=== PATIENT | male | born 1990 | race Caucasian/White ===

== ENCOUNTER 2018-08-18 14:32 | Emergency (ER) | payer BC, MEDICARE, SELFPAY ==
--- NOTE | 2018-08-18 14:35 | PC.NURSE ---
PT PLACED ON SUICIDE PRECAUTIONS AT THIS TIME.
[2018-08-18 14:41] VITALS: BP 168/112; PULSE 96; RESP 18; TEMP 36.5; O2SAT 96; BMI 34.0
--- NOTE | 2018-08-18 14:45 | PC.NURSE ---
RN ENTERED PATIENT'S ROOM, PATIENT ALERT AND ORIENTED TO SITUATION. INFORMED THIS RN THAT HE HAS THOUGHTS OF HARMING HIMSELF. RN PROVIDED ENCOURAGEMENT THAT HE HAD DONE THE RIGHT THING TELLING SOMEONE. PATIENT UP TO BATHROOM, GAIT STEADY. NO NEW NEEDS OR CONCERNS AT THIS TIME.
--- NOTE | 2018-08-18 14:49 | XR_ITS ---
XR chest 2V HISTORY: Chest pain, smoker ITS.REASON: SI ORDERING PHYSICIAN: Dusitn Bonner MD PATIENT AGE: 28 years COMPARISON: None FINDINGS: The cardiomediastinal silhouette and pulmonary vascularity are within normal limits. The lungs are clear without infiltrates, suspicious nodules, or pleural effusions. No acute bony abnormalities. IMPRESSION: Negative chest, no acute finding
--- NOTE | 2018-08-18 15:04 | PC.NURSE ---
Pt transported to [facility].
--- NOTE | 2018-08-18 15:14 | HMH.EDGENADL ---
ED Disposition Clinical Impression: Suicidal thoughts, Schizoaffective disorder, Auditory hallucination, Hypothyroidism Disposition: Xfer Short-Term Hosp Condition on Discharge: Fair Referrals: Silverio Irby MD [Primary Care Provider] - - Critical Care Critical Care Time: No Attestation: On 08/18/18, the high probability of a clinically significant, sudden or life threatening deterioration of the following system(s) required my full and direct attention, intervention and personal management. The time I documented below is in addition to time spent performing reported procedures but includes the following listed in this critical care notation. Medical Decision Making - Medical Records Medical records reviewed: Yes: I reviewed the patient's medical records. - Vijay Inquiry Pt receiving controlled substance: No Vijay was queried for this patient: No Vital Signs: 08/18/18 14:41 08/18/18 16:03 08/18/18 16:30 Temperature 97.7 F Temperature Source Oral Pulse Rate [Right Brachial] 96 H 83 86 Respiratory Rate 18 18 16 Blood Pressure [Right Arm] 168/112 H 145/84 H 156/84 H Blood Pressure Mean [Right Arm] 130 104 108 Blood Pressure Source [Right Arm] Automatic Cuff Automatic Cuff Automatic Cuff Blood Pressure Position [Right Arm] Sitting Sitting Supine 02 Sat by Pulse Oximetry 96 92 L 100 Oxygen Delivery Method Room Air Room Air Room Air 08/18/18 16:54 08/18/18 17:30 Temperature 98.2 F Temperature Source Oral Pulse Rate [Right Brachial] 82 100 H Respiratory Rate 20 16 Blood Pressure [Right Arm] 155/89 H 151/99 H Blood Pressure Mean [Right Arm] 111 116 Blood Pressure Source [Right Arm] Automatic Cuff Automatic Cuff Blood Pressure Position [Right Arm] Supine Supine 02 Sat by Pulse Oximetry 97 100 Oxygen Delivery Method Room Air Room Air - Lab Data Lab Results 08/18/18 15:00: WBC 8.0, RBC 5.10, Hgb 15.9, Hct 46.4, MCV 91.0, MCH 31.2, MCHC 34.3, RDW 13.2, Plt Count 257, MPV 7.6, Neut % (Auto) 66.0, Lymph % (Auto) 26.0, Hamilton % (Auto) 4.5, Eos % (Auto) 3.1, Baso % (Auto) 0.4, Neut # (Auto) 5.3, Lymph # (Auto) 2.1, Hamilton # (Auto) 0.4, Eos # (Auto) 0.3, Baso # (Auto) 0.0 08/18/18 15:00: Sodium 138, Potassium 3.7, Chloride 103, Carbon Dioxide 25, Anion Gap 13.7, BUN 8, Creatinine 1.01, Estimated Creat Clear 162, Estimated GFR 89, Est GFR ( Amer) 107, Glucose 115 H, Calcium 9.3, Total Bilirubin 0.5, AST 32, ALT 83 H, Alkaline Phosphatase 39 L, Total Protein 8.2, Albumin 4.3, Globulin 3.9 H, Albumin/Globulin Ratio 1.1, TSH 5.61 H, Free T4 0.86, Salicylates 0.9 L, Acetaminophen 0 L, Plasma/Serum Alcohol 0 08/18/18 15:03: Urine Color Yellow, Urine Appearance Clear, Urine pH 7.0, Ur Specific Girard 1.010, Urine Protein Trace, Urine Glucose (UA) Negative, Urine Ketones Negative, Urine Blood Negative, Urine Nitrate Negative, Urine Bilirubin Negative, Urine Urobilinogen 0.2, Ur Leukocyte Esterase Negative, Urine WBC Occasional, Ur Squamous Epith Cells Occasional, Urine Bacteria Trace 08/18/18 15:03: Urine Opiates Screen Negative, Urine Methadone Screen Negative, Ur Barbituates Screen Negative, Ur Phencyclidine Scrn Negative, Ur Amphetamines Screen Negative, U Benzodiazepines Scrn Negative, Urine Cocaine Screen Negative, U Marijuana (THC) Screen Negative Result diagrams: 08/18/18 15:00 08/18/18 15:00 Medical Decision Narrative: The patient remained hemodynamically neurologically stable. He underwent unremarkable labs. He will be taken by [facility] to [facility] for intake. General Adult HPI - General Chief complaint: Psychiatric Symptoms Stated complaint: Suicidal Thoughts Time Seen by Provider: 08/18/18 15:00 Mode of Arrival: Ambulatory Source of Information: Patient Limitations: No Limitations Description of Symptoms (Recalled from ER Triage Doc. by RN): was watching tv when the depression hit him . - History of Present Illness HPI narrative: 28 years old white male resident [facility]
[2018-08-18 15:25] LABS: Basophils % 0.4 % (0.1-2.0); Eosinophils # 0.3 K/mm3 (0.0-0.4); Eosinophils % 3.1 % (0.1-12.0); Hematocrit 46.4 % (42.0-52.0); Hemoglobin 15.9 g/dL (14.1-18.0); Lymphocytes # 2.1 K/mm3 (0.7-4.5); Mean Corpuscular HGB Conc 34.3 g/dL (31.8-35.4); Mean Corpuscular Hemoglobin 31.2 pg (27.0-31.2); Mean Platelet Volume 7.6 fl (7.4-10.4); Monocytes # 0.4 K/mm3 (0.1-1.0); Monocytes % 4.5 % (1.7-9.3); Neutrophils # 5.3 K/mm3 (1.8-7.8); Platelet Count 257 K/mm3 (142-424); Red Cell Distribution Width 13.2 % (11.5-17.5)
[2018-08-18 15:44] LABS: Appearance,Urine CLEAR (Clear); Bilirubin,Urine Negative (Negative); Blood, Urine Negative (Negative); Color,Urine YELLOW (Yellow); Glucose,Urine (UA) Negative (Negative); Ketones,Urine Negative (Negative); Leukocyte Esterase,Urine Negative (Negative); Nitrate,Urine Negative (Negative); Protein,Urine TRACE (Negative); Urobilinogen,Urine 0.2 EU/dl (0.2)
[2018-08-18 15:51] LABS: Amphetamine/Metha Screen,Urine Negative ng/mL (<1000); Barbiturates Screen,Urine Negative ng/mL (<200); Benzodiazepines Screen,Urine Negative ng/mL (<200); Cannabinoid Screen,Urine Negative ng/mL (<50); Cocaine Screen,Urine Negative ng/mL (<300); Methadone Screen,Urine Negative ng/mL (<300); Opiate Screen,Urine Negative ng/mL (<300); Phencyclidine Screen,Urine Negative ng/mL (<25)
[2018-08-18 15:51] LABS: Alanine Aminotransferase 83 U/L (12-78); Albumin Level 4.3 gm/dL (3.4-5.0); Albumin/Globulin Ratio 1.1 (1.1-1.8); Alkaline Phosphatase 39 U/L (46-116); Anion Gap 13.7 mEq/L (5-15); Aspartate Amino Transferase 32 U/L (15-37); Bilirubin,Total 0.5 mg/dL (0.2-1.0); Blood Urea Nitrogen 8 mg/dL (7-18); Calcium 9.3 mg/dL (8.5-10.1); Carbon Dioxide 25 mmol/L (21.0-32.0); Chloride 103 mmol/L (98-107); Creatinine Clearance Estimated 162 mL/min (50-200); Creatinine,Serum 1.01 mg/dL (0.70-1.30); Estimated Glomerular Filt Rate 89 ml/min (>60); Free T4 (Free Thyroxine) 0.86 ng/dl (0.76-1.46); GFR (African American) 107 ML/MIN (>60); Globulin 3.9 gm/dl (1.3-3.2); Glucose 115 mg/dL (74-106); Potassium 3.7 mmoL/L (3.5-5.1); Salicylate 0.9 mg/dL (2.8-20.0); Sodium 138 mmol/L (136-145); Thyroid Stimulating Hormone 5.61 uIU/ml (0.358-3.740); Total Protein,Serum 8.2 gm/dL (6.4-8.2)
[2018-08-18 15:52] LABS: Acetaminophen 0 ug/mL (10-30); Ethyl Alcohol 0 mg/dL (0-99)
[2018-08-18 15:52] LABS: Bacteria,Urine Trace /lpf; Squamous Epithelial Cell,Urine Occasional #/hpf (0-5); WBC,Urine Occasional #/hpf (0-3)
[2018-08-18 16:03] VITALS: BP 145/84; PULSE 83; RESP 18; O2SAT 92
[2018-08-18 16:03] LABS: Microscopic, Urine URINE MICROSCOPIC (MICROSCOPIC)
[2018-08-18 16:30] VITALS: BP 156/84; PULSE 86; RESP 16; O2SAT 100
--- NOTE | 2018-08-18 16:43 | PC.NURSE ---
PATIENT RESTING AT THIS TIME, NO NEW NEEDS OR CONCERNS AT THIS TIME.
[2018-08-18 16:54] VITALS: BP 155/89; PULSE 82; RESP 20; O2SAT 97
--- NOTE | 2018-08-18 17:27 | PC.NURSE ---
RN WAS PERFORMING EKG, MD CAME INTO ROOM AND STATED TO CANCEL EKG. LABS LOOK GOOD, OKAY TO TRANSFER. NO OTHER NEEDS OR CONCERNS AT THIS TIME.
[2018-08-18 17:30] VITALS: BP 151/99; PULSE 100; RESP 16; TEMP 36.8; O2SAT 100
--- NOTE | 2018-08-18 17:38 | PC.NURSE ---
called [facility] and spoke with Chavez Phillips. faxed pt information to them for review
--- NOTE | 2018-08-18 17:48 | PC.NURSE ---
PATIENT SITTING UP IN BED WHILE EATING DINNER, TRANSPORT HERE FOR D/C, WILL WAIT TILL PATIENT IS DONE. NO NEW NEEDS OR CONCERNS AT THIS TIME.
[2018-08-18 17:53] VITALS: BP 123/74; PULSE 73; RESP 17; TEMP 36.7; O2SAT 99
--- NOTE | 2018-08-18 17:53 | PC.NURSE ---
pt left with officer, demanding to go stating he wants help now.
== END 2018-08-18 17:56 | disposition short-term general hospital (02) ==
PROVIDERS: Emergency Provider Emergency Medicine; PCP Emergency Medicine
DX: R45.851 Suicidal ideations (principal); F25.9 Schizoaffective disorder, unspecified; R44.0 Auditory hallucinations; F17.290 Nicotine dependence, other tobacco product, uncomplicated; E03.9 Hypothyroidism, unspecified; I10 Essential (primary) hypertension; Z88.8 Allergy status to other drugs, medicaments and biological substances
CPT/HCPCS: 71046; 80053; 80305; 80329; 81001; 84439; 84443; 85025; 93005; 99284